=== PATIENT | female | born 1975 | race African-American/Black ===

== ENCOUNTER 2017-07-04 09:28 | Emergency (ER) | payer MEDICAID, SELFPAY ==
[2017-07-04 09:29] VITALS: BP 108/66; PULSE 112; RESP 16; TEMP 36.4; O2SAT 98; BMI 40.7
[2017-07-04 09:32] VITALS: O2SAT 100
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
[2017-07-04] MEDS: Ketorolac 30 MG/ML Syringe IM (10:12)
[2017-07-04 10:15] VITALS: BP 109/77; PULSE 112; RESP 16; O2SAT 98
== END 2017-07-04 10:16 | disposition home or self-care (01) ==
PROVIDERS: Emergency Provider Emergency Medicine
DX: S13.4XXA Sprain of ligaments of cervical spine, initial encounter (principal); M54.9 Dorsalgia, unspecified; V49.50XA Passenger injured in collision with unspecified motor vehicles in traffic accident, initial encounter; Y93.9 Activity, unspecified; Y92.410 Unspecified street and highway as the place of occurrence of the external cause; Y99.8 Other external cause status; I10 Essential (primary) hypertension
CPT/HCPCS: 96372; 99284